=== PATIENT | female | born 1990 | race Caucasian/White ===

== ENCOUNTER 2021-07-30 13:11 | Emergency (ER) | payer MEDICAID ==
[2021-07-30 13:28] LABS: BASOPHILS % (AUTO) 0 % (0-10); EOSINOPHILS % (AUTO) 0 % (0-10); HEMATOCRIT 44 % (35-52); HEMOGLOBIN 13.9 g/dL (11.5-16.0); LYMPHOCYTES # (AUTO) 1.3 10^3/uL (1.0-4.0); LYMPHOCYTES % (AUTO) 9 % (12-44); MEAN CORPUSCULAR HEMOGLOBIN 29 pg (25-34); MEAN CORPUSCULAR HGB CONC 32 g/dL (32-36); MEAN CORPUSCULAR VOLUME 91 fL (80-99); MEAN PLATELET VOLUME 9.6 fL (9.0-12.2); MONOCYTES # (AUTO) 1.5 10^3/uL (0.0-1.0); MONOCYTES % (AUTO) 10 % (0-12); NEUTROPHILS # (AUTO) 11.5 10^3/uL (1.8-7.8); NEUTROPHILS % (AUTO) 80 % (42-75); PLATELET COUNT 340 10^3/uL (130-400); WHITE BLOOD COUNT 14.4 10^3/uL (4.3-11.0)
[2021-07-30 13:34] LABS: CLARITY,URINE CLOUDY; COLOR,URINE BROWN
[2021-07-30 13:35] LABS: BACTERIA,URINE LARGE /HPF; BILIRUBIN,URINE 1+ (NEGATIVE); GLUCOSE, URINE (UA) NEGATIVE (NEGATIVE); KETONES,URINE NEGATIVE (NEGATIVE); LEUKOCYTE ESTERASE ,URINE TRACE (NEGATIVE); NITRITE,URINE POSITIVE (NEGATIVE); PROTEIN,URINE 2+ (NEGATIVE); RBC,URINE 50-100 /HPF; WBC,URINE >100 /HPF
[2021-07-30 13:51] LABS: ALANINE AMINOTRANSFERASE 58 U/L (0-55); ALKALINE PHOSPHATASE 103 U/L (40-136); BILIRUBIN,TOTAL 0.2 MG/DL (0.1-1.0); BUN/CREATININE RATIO 13; CALCIUM 9.6 MG/DL (8.5-10.1); CARBON DIOXIDE 21 MMOL/L (21-32); CHLORIDE 98 MMOL/L (98-107); CREATININE SERUM 2.07 MG/DL (0.60-1.30); GFR ESTIMATED 32; GLUCOSE 122 MG/DL (70-105); POTASSIUM 4.3 MMOL/L (3.6-5.0); SODIUM 143 MMOL/L (135-145)
[2021-07-30 13:52] LABS: ACETAMINOPHEN < 10 UG/ML (10-30); ALBUMIN 4.9 GM/DL (3.2-4.5); SALICYLATE < 0.3 MG/DL (5.0-20.0); TOTAL PROTEIN 8.1 GM/DL (6.4-8.2)
[2021-07-30 13:53] LABS: ABG PCO2 48 MMHG (35-45); ABG PH 7.12 (7.37-7.43); ABG PO2 80 MMHG (79-93); ABG TCO2 17.1 MMOL/L (21.0-31.0)
[2021-07-30 13:54] LABS: ABG BASE EXCESS -13.5 MMOL/L (-2.5-2.5); ABG OXYGEN SATURATION 91 % (94-100); PATIENT TEMP 35.6
[2021-07-30 13:57] LABS: ALLENS TEST NEGATIVE; INSPIRED O2 2L; VENTILATOR NO
[2021-07-30 14:10] LABS: INR 1.1 (0.8-1.4); PROTHROMBIN TIME PATIENT 14.4 SEC (12.2-14.7)
--- NOTE | 2021-07-30 14:11 | Diagnostic Imaging Report ---
INDICATION: Unresponsive. Overdose. FINDINGS: The lung volumes are slightly diminished with some mild perihilar atelectasis. There is no dense airspace consolidation or pneumonia. There is no effusion or pneumothorax. The heart size is appropriate. The pulmonary vascularity appears normal. IMPRESSION: Low lung volumes with mild perihilar atelectasis. Dictated by: Dictated on workstation # [id number]
[2021-07-30] MEDS: NS IV 1000 ML 1,000 ML IV SCH ×2 (14:15→14:41)
[2021-07-30 14:18] LABS: AMPHETAMINE SCREEN, URINE POSITIVE (NEGATIVE); BARBITURATE SCREEN URINE NEGATIVE (NEGATIVE); BENZODIAZEPINES SCREEN URINE NEGATIVE (NEGATIVE); CANNABINOID SCREEN, URINE POSITIVE (NEGATIVE); COCAINE SCREEN URINE NEGATIVE (NEGATIVE); METHADONE STAT NEGATIVE (NEGATIVE); OPIATE SCREEN URINE NEGATIVE (NEGATIVE); OXYCODONE STAT NEGATIVE (NEGATIVE); PROPOXYPHENE STAT NEGATIVE (NEGATIVE); TRICYCLIC ANTIDEPRESSANTS SCRE NEGATIVE (NEGATIVE)
[2021-07-30] MEDS ORDERED: NS IV 1000 ML 1,000 ML ONE (14:26)
[2021-07-30] MEDS ORDERED: PIPERACILLIN SODIUM/TAZOBACTAM 4.5 GM in NS (IVPB) 100 ML IV ONE (14:30)
[2021-07-30 14:32] LABS: LYMPHOCYTES % (MANUAL) 10 %; MONOCYTES % (MANUAL) 7 %; NEUTROPHILS % (MANUAL) 83 %
--- NOTE | 2021-07-30 14:34 | ED General ---
General Chief Complaint: Overdose Stated Complaint: OVERDOSE Source of Information: EMS Exam Limitations: Physical Impairments (Unresponsive) History of Present Illness Date Seen by Provider: Jul 30, 2021 Time Seen by Provider: 13:11 Initial Comments 30-year-old female patient with unknown medical problem was found unresponsive at the bathroom of a friend house that she met her only twice. EMS reported that she had very slow breathing with cyanosis and treated with intranasal Narcan bilaterally and gradually started to move her extremities and breathing better and EMS changed intubation plan. Patient had a good gag reflex in ER and responded to painful stimuli and complaining of discomfort feeling of blood pr essure cuff in her left arm and moving her legs during insertion of Dominguez catheter but unable to talk and give history. Allergies and Home Medications Allergies Coded Allergies: No Allergy Information Available (Unverified , 07/30/21) Patient Home Medication List Home Medication List Reviewed: No (No list is available) Review of Systems Review of Systems Constitutional: other (Patient has altered level of consciousness and unable to give review of system) Past Nybcenr-Hdrhba-Jijuaa Hx Patient Social History Substance use?: Unable to obtain Alcohol Use?: Unable to obtain Pt feels they are or have been: No Immunizations Up To Date First/Initial COVID19 Vaccinat: Unknown Past Medical History Surgery/Hospitalization HX: Unknown. History of OD and substance abuse reported Physical Exam Vital Signs Vital Signs - First Documented 07/30/21 13:17 Temp 35.6 Pulse 119 Resp 14 B/P (MAP) 108/52 (70) Pulse Ox 95 O2 Delivery Nasal Cannula O2 Flow Rate 2.00 Capillary Refill : Less Than 3 Seconds Height, Weight, BMI Height: '" Weight: lbs. oz. kg; BMI Method: General Appearance: Mild Distress, Other (Altered level of consciousness, respond to painful stimuli) Respiratory: Chest Non Tender, Lungs Clear, Normal Breath Sounds, No Accessory Muscle Use Cardiovascular: No Edema, Tachycardia Gastrointestinal: Normal Bowel Sounds, Non Tender, Soft Extremity: Normal Inspection Neurologic/Psychiatric: Other (Responded to painful stimuli , moves all extremities, yelling but not talking) Skin: Cool, Mottled (Improved later) Focused Exam Lactate Level 07/30/21 14:00: Lactic Acid Level 8.39*H Lactic Acid Level Laboratory Tests Test 07/30/21 14:00 Lactic Acid Level 8.39 MMOL/L (0.50-2.00) *H Progress/Results/Core Measures Suspected Sepsis SIRS Temperature: Pulse: Respiratory Rate: Laboratory Tests 07/30/21 13:18: White Blood Count 14.4H Blood Pressure / Mean: 07/30/21 14:00: Lactic Acid Level 8.39*H Laboratory Tests 07/30/21 13:18: Creatinine 2.07H, INR Comment 1.1, Platelet Count 340, Total Bilirubin 0.2 Results/Orders Lab Results Laboratory Tests Test 07/30/21 13:18 07/30/21 13:20 07/30/21 13:38 07/30/21 14:00 Range/Units White Blood Count 14.4 H 4.3-11.0 10^3/uL Red Blood Count 4.81 3.80-5.11 10^6/uL Hemoglobin 13.9 11.5-16.0 g/dL Hematocrit 44 35-52 % Mean Corpuscular Volume 91 80-99 fL Mean Corpuscular Hemoglobin 29 25-34 pg Mean Corpuscular Hemoglobin Concent 32 32-36 g/dL Red Cell Distribution Width 14.1 10.0-14.5 % Platelet Count 340 130-400 10^3/uL Mean Platelet Volume 9.6 9.0-12.2 fL Immature Granulocyte % (Auto) 1 % Neutrophils (%) (Auto) 80 H 42-75 % Lymphocytes (%) (Auto) 9 L 12-44 % Monocytes (%) (Auto) 10 0-12 % Eosinophils (%) (Auto) 0 0-10 % Basophils (%) (Auto) 0 0-10 % Neutrophils # (Auto) 11.5 H 1.8-7.8 10^3/uL Lymphocytes # (Auto) 1.3 1.0-4.0 10^3/uL Monocytes # (Auto) 1.5 H 0.0-1.0 10^3/uL Eosinophils # (Auto) 0.0 0.0-0.3 10^3/uL Basophils # (Auto) 0.0 0.0-0.1 10^3/uL Immature Granulocyte # (Auto) 0.1 0.0-0.1 10^3/uL Neutrophils % (Manual) 83 % Lymphocytes % (Manual) 10 % Monocytes % (Manual) 7 % Prothrombin Time 14.4 12.2-14.7 SEC INR Comment 1.1 0.8-1.4 Activated Partial Thromboplast Time 32 24-35 SEC Sodium Level 143 135-145 MMOL/L Potassium Level 4.3 3.6-5.0 MMOL/L Chloride Level 98 98-107 MMOL/L Carbon Dioxide Level 21 21-32 MMOL/L Anion Gap 24 H 5-14 MMOL/L Blood Urea Nitrogen 26 H 7-18 MG/DL Creatinine 2.07 H 0.60-1.30 MG/DL Estimat Glomerular Filtration Rate 32 BUN/Creatinine Ratio 13 Glucose Level 122 H 70-105 MG/DL Calcium Level 9.6 8.5-10.1 MG/DL Corrected Calcium 8.5-10.1 MG/DL Total Bilirubin 0.2 0.1-1.0 MG/DL Aspartate Amino Transf (AST/SGOT) 37 H 5-34 U/L Alanine Aminotransferase (ALT/SGPT) 58 H 0-55 U/L Alkaline Phosphatase 103 40-136 U/L Total Protein 8.1 6.4-8.2 GM/DL Albumin 4.9 H 3.2-4.5 GM/DL Salicylates Level < 0.3 L 5.0-20.0 MG/DL Acetaminophen Level < 10 L 10-30 UG/ML Serum Alcohol < 10 <10 MG/DL Urine Color BROWN H Urine Clarity CLOUDY Urine pH 6.0 5-9 Urine Specific Carville >=1.030 1.016-1.022 Urine Protein 2+ H NEGATIVE Urine Glucose (UA) NEGATIVE NEGATIVE Urine Ketones NEGATIVE NEGATIVE Urine Nitrite POSITIVE H NEGATIVE Urine Bilirubin 1+ H NEGATIVE Urine Urobilinogen 0.2 < = 1.0 MG/DL Urine Leukocyte Esterase TRACE H NEGATIVE Urine RBC (Auto) 3+ H NEGATIVE Urine RBC 50-100 H /HPF Urine WBC >100 H /HPF Urine Crystals NONE /LPF Urine Bacteria LARGE H /HPF Urine Casts NONE /LPF Urine Mucus LARGE H /LPF Urine Culture Indicated YES Urine Opiates Screen NEGATIVE NEGATIVE Urine Oxycodone Screen NEGATIVE NEGATIVE Urine Methadone Screen NEGATIVE NEGATIVE Urine Propoxyphene Screen NEGATIVE NEGATIVE Urine Barbiturates Screen NEGATIVE NEGATIVE Ur Tricyclic Antidepressants Screen NEGATIVE NEGATIVE Urine Phencyclidine Screen NEGATIVE NEGATIVE Urine Amphetamines Screen POSITIVE H NEGATIVE Urine Methamphetamines Screen POSITIVE H NEGATIVE Urine Benzodiazepines Screen NEGATIVE NEGATIVE Urine Cocaine Screen NEGATIVE NEGATIVE Urine Cannabinoids Screen POSITIVE H NEGATIVE Blood Gas Puncture Site RIGHT RADIAL Blood Gas Patient Temperature 35.6 Arterial Blood pH 7.12 *L 7.37-7.43 Arterial Blood Partial Pressure CO2 48 H 35-45 MMHG Arterial Blood Partial Pressure O2 80 79-93 MMHG Arterial Blood HCO3 16 *L 23-27 MMOL/L Arterial Blood Total CO2 17.1 L 21.0-31.0 MMOL/L Arterial Blood Oxygen Saturation 91 L 94-100 % Arterial Blood Base Excess -13.5 L -2.5-2.5 MMOL/L Augusto Test NEGATIVE Blood Gas Ventilator Setting NO Blood Gas Inspired Oxygen 2L Lactic Acid Level 8.39 *H 0.50-2.00 MMOL/L My Orders Orders - ELADIA ESPINOZA MD Ua Culture If Indicated (07/30/21 13:21) Cbc With Automated Diff (07/30/21 13:21) Comprehensive Metabolic Panel (07/30/21 13:21) Alcohol (07/30/21 13:21) Drug Screen Stat (Urine) (07/30/21 13:21) Acetaminophen (07/30/21 13:21) Salicylate (07/30/21 13:21) Ekg Tracing (07/30/21 13:21) Ed Iv/Invasive Line Start (07/30/21 13:21) Monitor-Rhythm Ecg Trace Only (07/30/21 13:21) Ed Iv/Invasive Line Start (07/30/21 13:21) Urine Bedside (07/30/21 13:21) Chest 1 View Ap/Pa Only (07/30/21 13:21) Urine Culture (07/30/21 13:20) Manual Differential (07/30/21 13:18) Arterial Blood Gas (07/30/21 13:38) Ekg Tracing (07/30/21 13:53) Blood Culture (07/30/21 13:53) Protime With Inr (07/30/21 13:53) Partial Thromboplastin Time (07/30/21 13:53) O2 (07/30/21 13:53) Lactic Acid Analyzer (07/30/21 13:53) Ns Iv 1000 Ml (Sodium Chloride 0.9%) (07/30/21 14:00) Piperacillin Sodium/Tazobactam (Zosyn Vi (07/30/21 14:30) Ns Iv 1000 Ml (Sodium Chloride 0.9%) (07/30/21 14:26) Covid 19 Inhouse Test (07/30/21 16:37) Lorazepam Injection (Ativan Injection) (07/30/21 16:15) Lorazepam Injection (Ativan Injection) (07/30/21 16:03) Medications Given in ED Current Medications Medications Dose Ordered Sig/Josy Route Start Time Stop Time Status Last Admin Dose Admin Lorazepam 0.5 mg ONCE PRN IVP 07/30/21 16:15 07/30/21 16:06 0.5 MG Piperacillin Sod/ Tazobactam Sod 4.5 gm/Sodium Chloride 100 ml @ 200 mls/hr ONCE ONCE IV 07/30/21 14:30 07/30/21 14:59 DC 07/30/21 15:25 200 MLS/HR Vital Signs/I&O 07/30/21 13:17 Temp 35.6 Pulse 119 Resp 14 B/P (MAP) 108/52 (70) Pulse Ox 95 O2 Delivery Nasal Cannula O2 Flow Rate 2.00 Capillary Refill : Less Than 3 Seconds Progress Note : Progress Note Evaluation of patient in ER showed 3-year-old female patient with unknown medical history brought in by EMS with diagnosis of possible overdose after she responded well to Narcan and became more awake. Patient had good gag reflex and responded to painful stimuli and moving her extremities and maintained her airway in ER. Patient had tachycardia without hypotension and treated with IV fluid. Dominguez catheter was placed and it showed very cloudy and bloody urine. UA showed more than 100 WBC. White count was 14,000 and lactic acid was 8.4. Patient treated for severe sepsis with IV fluid and Zosyn. Patient gradually became more awake and yelling and trying to prevent of staff to help her. No ICU bed was available at [facility] and decided to transfer patient to [facility]. Dr. Nicho Lloyd accepted to the at [address] Gracie Marie to [facility] ICU. ECG Initial ECG Impression Date: Jul 30, 2021 Initial ECG Impression Time: 13:40 Initial ECG Rhythm: S.Tach Comment EKG interpreted by me. EKG at 1340 showed sinus tachycardia at rate of 112, multiple artifact, no acute ST and T wave elevation. Diagnostic Imaging Diagonstic Imaging: Xray Comments 1 view chest x-ray interpreted by radiologist and reviewed by me and showed: [facility]. [place], [place] NAME: SALTY GOMEZ [facility] REC#: [id number] PT STATUS: REG ER : 1990 PHYSICIAN: ELADIA ESPINOZA MD ADMIT DATE: 07/30/21/ER FS Signed Date of Exam:07/30/21 CHEST 1 VIEW AP/PA ONLY INDICATION: Unresponsive. Overdose. FINDINGS: The lung volumes are slightly diminished with some mild perihilar atelectasis. There is no dense airspace consolidation or pneumonia. There is no effusion or pneumothorax. The heart size is appropriate. The pulmonary vascularity appears normal. IMPRESSION: Low lung volumes with mild perihilar atelectasis. Dictated by: Dictated on workstation # [id number] Dict: 07/30/21 1408 Trans: 07/30/21 1539 [id number] Interpreted by: GAIL LOPEZ MD Electronically signed by: GAIL LOPEZ MD 07/30/21 1539 Reviewed: Reviewed by Ia Critical Care Note Critical Care Start Time: 12:40 Stop Time: 14:55 Departure Communication (Admissions) Time/Spoke to Admitting Phy: 14:45 Talked to [facility] Dr nicho Lloyd who accepted patient for Dr. Gracie Marie at 1445. Impression Primary Impression: Altered level of consciousness Additional Impressions: Severe sepsis Acidosis Urinary tract infection Qualified Codes: N39.0 - Urinary tract infection, site not specified; R31.9 - Hematuria, unspecified Substance abuse Elevated liver function tests Renal insufficiency Disposition: XF SHT-TRM HOSP Condition: Improved Admissions Decision to Admit Reason: Admit from ER (Trauma) Decision to Admit/Date: Jul 30, 2021 Time/Decision to Admit Time: 14:45 Transfer Transfer Reason: Exceeds level of care (No ICU bed is available at [facility]) Time Spoke to Accepting Phy: 14:45 Method of Transfer: EMS Departure-Patient Inst. Patient Instructions: ALCOHOL AND SUBSTANCE ABUSE ELADIA ESPINOZA MD Jul 30, 2021 14:34
[2021-07-30] MEDS ORDERED: LORazepam INJ 2 MG/ML (ATIVAN) VIAL ONE (16:03)
[2021-07-30] MEDS ORDERED: LORazepam INJ 2 MG/ML (ATIVAN) VIAL IVP PRN (16:15)
[2021-07-30 16:29] VITALS: BP 104/55
== END 2021-07-30 16:29 | disposition short-term general hospital (02) ==
LOC: ER FS 13:14
DX: A41.9 Sepsis, unspecified organism (principal); R65.20 Severe sepsis without septic shock; R41.82 Altered mental status, unspecified; F19.10 Other psychoactive substance abuse, uncomplicated; N39.0 Urinary tract infection, site not specified; N28.9 Disorder of kidney and ureter, unspecified; E87.2 Acidosis; R79.89 Other specified abnormal findings of blood chemistry
CPT/HCPCS: 36415; 51702; 71045; 80053; 80306; 81000; 82805; 83605; 84703; 85007; 85027; 85610; 85730; 87040; 87077; 87088; 87186; 87636; 93005; 99291; G0480 ×3; 80320; 80329